=== PATIENT | female | born 1945 | race Caucasian/White ===

== ENCOUNTER → 2016-12-10 | Outpatient (CLI) | payer OTHER ==
[~2016-12-10] MED LIST: ALENDRONATE SOD70 MG PO; APAP W/CODEINE1 TA2 PO; CALCIUM PO; CITRACEL PO; HYDROCODON-ACE1 EAC5 PO; MOBIC15 MG PO; MULTIVITAMINS PO; OMEGA-3 FISH O1 EAC3 PO; PREDNISONE 5 MG5 M1 PO; VITAMIN D-32000 UNIT PO; [UNRECOGNIZED DRUG - OTHER] PO
== END ==
LOC: NUC 09:04
DX: Z12.31 Encounter for screening mammogram for malignant neoplasm of breast (principal); Z13.820 Encounter for screening for osteoporosis; M85.80 Other specified disorders of bone density and structure, unspecified site

== ENCOUNTER → 2018-12-23 | Outpatient (CLI) | payer OTHER | LOC: NUC 04:04 | DX: Z12.31 Encounter for screening mammogram for malignant neoplasm of breast (principal); M81.0 Age-related osteoporosis without current pathological fracture; M85.80 Other specified disorders of bone density and structure, unspecified site; Z78.0 Asymptomatic menopausal state ==